=== PATIENT | female | born 1990 | race Caucasian/White ===

== ENCOUNTER 2016-10-26 21:32 | Emergency (ER) | payer OTHER ==
[~2016-10-26 21:32] MED LIST: CIPR500T4 PO; IBUP600T26 PO
--- NOTE | 2016-10-26 22:14 | PD ---
HPI Chief Complaint Contractions Date Seen: Oct 26, 2016 Time Seen: 22:00 Travel History International Travel<30 Days: No Contact w/Intl Traveler<30Days: No Known Affected Area: No History of Present Illness HPI Pt is a 26 yo here with complaint of contractions since 4am today. Contractions have increased in frequency and intensity. care at [facility]. Denies any vaginal bleeding or leaking fluid. She reports active movements Para: 0 : 1 Miscarriage: 0 : 0 History Past Medical History Narrative Medical Nil significant Medical History: Denies Significant Hx Past Surgical History Narrative Surgical Tonsillectomy Social History Alcohol Use: No Tobacco Use: No Substance Abuse: No Allergies-Medications (Allergen,Severity, Reaction): Coded Allergies: Adhesives (Verified Allergy, Unknown, 12/05/13) Home Meds Active Scripts Ciprofloxacin Hcl (Cipro)500 Mg [id number] Mg PO BID 5 Days Prov:Tamara Devi 12/06/13 Ibuprofen 600 Mg [id number] Mg PO Q8 PRN (PAIN) #30 TAB Prov:Tamara Devi 12/06/13 Review of Systems Except as stated in HPI: all other systems reviewed are Neg Physical Exam Narrative GENERAL: Well-nourished, well-developed patient. SKIN: Warm and dry. HEAD: Normocephalic and atraumatic. EYES: No scleral icterus. No injection or drainage. ENT: No nasal drainage noted. Mucous membranes pink. Airway patent. NECK: Supple, trachea midline. No JVD. CARDIOVASCULAR: Regular rate and rhythm without murmurs, gallops, or rubs. RESPIRATORY: Breath sounds equal bilaterally. No accessory muscle use. BREASTS: Bilateral exam showed no masses , no retractions, no nipple discharge. ABDOMEN/GI: Abdomen soft, non-tender, bowel sounds present, no rebound, no guarding Gravid to [-] weeks size Fundal Height: [-] GENITOURINARY: External Genitalia: intact and normal in appearance BUS glands: [-] Cervix: [soft] Dilatation: [1] Effacement: [80] Station: [-2] Presentation: [vertex] Membranes: [intact] Uterine Contractions: [3-6] FHT's: Category: [Cat 1] Baseline: [-] Reactive: [-] Variability: [-] Decels: [-] Pt was re-examined after an hour without any cervical change. She does not want anything for pain. EXTREMITIES: No cyanosis or edema. BACK: Nontender without obvious deformity. No CVA tenderness. NEUROLOGICAL: Awake and alert. Motor and sensory grossly within normal limits. Five out of 5 muscle strength in all muscle groups. Normal speech. Data Data Vital Signs Reviewed: Yes MDM Interpretation(s) No cervical change after re-exam in an hour. Diagnosis Diagnosis: Primary Impression: False labor after 37 completed weeks of gestation Additional Impression: 40 weeks gestation of Disposition: 01 DISCHARGE HOME (Prodomal labor. Labor precautions) Condition: Stable Deep Silva MD Oct 26, 2016 22:14
== END 2016-10-26 23:26 | disposition home or self-care (01) ==
LOC: HOBED 21:32
DX: O47.1 False labor at or after 37 completed weeks of gestation (principal); Z3A.40 40 weeks gestation of pregnancy
CPT/HCPCS: 87641; 99283

== ENCOUNTER 2016-10-27 06:30 | Inpatient (IN) | payer OTHER ==
[2016-10-27] VITALS (115 sets, daily range): BP systolic 72–131; BP diastolic 40–99; PULSE 59–272; RESP 16–18; TEMP 97.4–99.6; O2SAT 99–100
--- NOTE | 2016-10-27 07:35 | PD ---
HPI Chief Complaint Contractions 40 weeks and 1 day Date Seen: Oct 27, 2016 Time Seen: 07:25 Travel History International Travel<30 Days: No Contact w/Intl Traveler<30Days: No Known Affected Area: No History of Present Illness HPI Pt is a 26 yo who presents again with complaint of contractions. Increased intensity Pt was seen last night in OB ER and did not make any cervical change after 1 hour at 1cm/80/-2 She denies any vaginal leaking or bleeding Para: 0 : 1 Miscarriage: 0 : 0 History Past Medical History Medical History: Denies Significant Hx Past Surgical History Narrative Surgical Tonsillectomy Social History Alcohol Use: No Tobacco Use: No Substance Abuse: No Allergies-Medications (Allergen,Severity, Reaction): Coded Allergies: Adhesives (Verified Allergy, Unknown, 12/05/13) Home Meds Active Scripts Ciprofloxacin Hcl (Cipro)500 Mg [id number] Mg PO BID 5 Days Prov:Tamara Devi 12/06/13 Ibuprofen 600 Mg [id number] Mg PO Q8 PRN (PAIN) #30 TAB Prov:Tamara Devi 12/06/13 Review of Systems Except as stated in HPI: all other systems reviewed are Neg Physical Exam Narrative GENERAL: Well-nourished, well-developed patient. SKIN: Warm and dry. HEAD: Normocephalic and atraumatic. EYES: No scleral icterus. No injection or drainage. ENT: No nasal drainage noted. Mucous membranes pink. Airway patent. NECK: Supple, trachea midline. No JVD. CARDIOVASCULAR: Regular rate and rhythm without murmurs, gallops, or rubs. RESPIRATORY: Breath sounds equal bilaterally. No accessory muscle use. BREASTS: Bilateral exam showed no masses , no retractions, no nipple discharge. ABDOMEN/GI: Abdomen soft, non-tender, bowel sounds present, no rebound, no guarding Gravid to [40] weeks size Fundal Height: [40-] GENITOURINARY: External Genitalia: intact and normal in appearance BUS glands: [-] Cervix: [soft] Dilatation: [3] Effacement: [80 %-] Station: [-2] Presentation: [vertex] Membranes: [intact] Uterine Contractions: [3-4-] FHT's: Category: [Cat 1] Baseline: [120s Reactive: [-] Variability: [-] Decels: [-] EXTREMITIES: No cyanosis or edema. BACK: Nontender without obvious deformity. No CVA tenderness. NEUROLOGICAL: Awake and alert. Motor and sensory grossly within normal limits. Five out of 5 muscle strength in all muscle groups. Normal speech. Data Data Vital Signs Reviewed: Yes [facility] Medical Record Reviewed: Yes Interpretation(s) Cervical change with regular contractions. GBS positive. Will admit into labor Diagnosis Diagnosis: Primary Impression: 40 weeks gestation of Additional Impression: Indication for care in labor and delivery, antepartum Condition: Good Deep Silva MD Oct 27, 2016 07:35
[2016-10-27] MEDS ORDERED: LACTATED RINGER'S 1000 ML INJ 1,000 ML IV SCH (07:39)
[2016-10-27] MEDS ORDERED: LACTATED RINGER'S 1000 ML INJ 1,000 ML IV PRN (07:39)
[2016-10-27] MEDS ORDERED: CITRIC ACID-SODIUM CITRATE LIQ 30 ML UDC PO SCH (07:45)
[2016-10-27] MEDS ORDERED: LIDOCAINE HCL 1% 50 ML VIAL I-DERMAL PRN (07:45)
[2016-10-27] MEDS ORDERED: LIDOCAINE HCL 1% 50 ML VIAL INFIL PRN (07:45)
[2016-10-27] MEDS ORDERED: MINERAL OIL 10 ML VIAL TOPICAL PRN (07:45)
[2016-10-27] MEDS ORDERED: SODIUM CHLORID 0.9% 500 ML INJ 500 ML IV PRN (07:45)
--- NOTE | 2016-10-27 07:49 | HHI.HP ---
HPI Chief Complaint Contractions at term 40 weeks and 1 day gestation Date Seen: Oct 27, 2016 Time Seen: 07:44 Travel History International Travel<30 Days: No Contact w/Intl Traveler<30Days: No Known Affected Area: No History of Present Illness HPI Pt is a 26 yo who presents again with complaint of contractions. Increased intensity Pt was seen last night in OB ER and did not make any cervical change after 1 hour at 1cm/80/-2 She denies any vaginal leaking or bleeding Pt has no allergies. GBS positive Para: 0 : 1 Miscarriage: 1 History Past Medical History Medical History: Denies Significant Hx Past Surgical History Narrative Surgical Tonsillectomy Social History Alcohol Use: No Tobacco Use: No Substance Abuse: No Allergies-Medications (Allergen,Severity, Reaction): Coded Allergies: Adhesives (Verified Allergy, Unknown, 12/05/13) Home Meds Active Scripts Ciprofloxacin Hcl (Cipro)500 Mg [id number] Mg PO BID 5 Days Prov:Tamara Devi 12/06/13 Ibuprofen 600 Mg [id number] Mg PO Q8 PRN (PAIN) #30 TAB Prov:Tamara Devi 12/06/13 Review of Systems Except as stated in HPI: all other systems reviewed are Neg Physical Exam Narrative GENERAL: Well-nourished, well-developed patient. SKIN: Warm and dry. HEAD: Normocephalic and atraumatic. EYES: No scleral icterus. No injection or drainage. ENT: No nasal drainage noted. Mucous membranes pink. Airway patent. NECK: Supple, trachea midline. No JVD. CARDIOVASCULAR: Regular rate and rhythm without murmurs, gallops, or rubs. RESPIRATORY: Breath sounds equal bilaterally. No accessory muscle use. BREASTS: Bilateral exam showed no masses , no retractions, no nipple discharge. ABDOMEN/GI: Abdomen soft, non-tender, bowel sounds present, no rebound, no guarding Gravid to [-] weeks size Fundal Height: [-] GENITOURINARY: External Genitalia: intact and normal in appearance BUS glands: [-] Cervix: [soft] Dilatation: [3cm] Effacement: [80-90%] Station: [-2] Presentation: [-] Membranes: [intact] Uterine Contractions: [3-5 minutes] FHT's: Category: [Cat 1] Baseline: [-120 Reactive: [-] Variability: [-] Decels: [-] EXTREMITIES: No cyanosis or edema. BACK: Nontender without obvious deformity. No CVA tenderness. NEUROLOGICAL: Awake and alert. Motor and sensory grossly within normal limits. Five out of 5 muscle strength in all muscle groups. Normal speech. Data Data Orders Ob (2e) Additional Admit Info (10/27/16 07:32) Admit To Inpatient (10/27/16 ) Code Status (10/27/16 07:39) Vital Signs (Adult) .Per protocol (10/27/16 07:39) Activity Oob Ad Sandra (10/27/16 07:39) Heart (10/27/16 07:39) Amnioinfusion (10/27/16 07:39) Urinary Catheter Management .ONCE (10/27/16 07:39) Diet Liquid (10/27/16 Breakfast) Lactated Ringer's 1000 Ml Inj (Lr 1000 M (10/27/16 07:39) Lactated Ringer's 1000 Ml Inj (Lr 1000 M (10/27/16 07:39) Sodium Chlorid 0.9% 500 Ml Inj (Ns 500 M (10/27/16 07:45) Sodium Chlor 0.9% 1000 Ml Inj (Ns 1000 M (10/27/16 07:59) Lidocaine 1% Inj (50 Ml) (Xylocaine 1% I (10/27/16 07:45) Citric Acid-Sodium Citrate Liq (Bicitra (10/27/16 07:45) Fentanyl Inj (Fentanyl Inj) (10/27/16 07:45) Fentanyl Inj (Fentanyl Inj) (10/27/16 07:45) Penicillin G Potassium Inj (Pfizerpen-G (10/27/16 07:45) Penicillin G Potassium Inj (Pfizerpen-G (10/27/16 11:45) Complete Blood Count With Diff (10/27/16 07:39) Hold Clot (10/27/16 07:39) Abo/Rh Blood Type (10/27/16 07:39) Urinalysis - C+S If Indicated (10/27/16 07:39) Resp Oxygen Non Rebreathe Mask (10/27/16 ) ^ Epidural / Intrathecal Infus (10/27/16 07:39) Oxytocin 30 Units-500ml Premix (Pitocin (10/27/16 07:45) Lidocaine 1% Inj (50 Ml) (Xylocaine 1% I (10/27/16 07:45) Light Mineral Oil (Muri-Lube Oil) (10/27/16 07:45) Inpatient Certification (10/27/16 ) Specimen To Be Collected PRN (10/27/16 07:39) Assessment/Plan Assessment and Plan Admit in labor 40 weeks and 1 day 3cm cervical dilatation with regular contractions. GBS, for antibiotic prophylaxis. May start Pitocon if contractions space out. Deep Silva MD Oct 27, 2016 07:48
[2016-10-27] MEDS ORDERED: SODIUM CHLOR 0.9% 1000 ML INJ 1,000 ML IV PRN (07:59)
[2016-10-27] MEDS ORDERED: OXYTOCIN 30 UNITS-500ML PREMIX 500 ML IV ONE (08:00)
[2016-10-27] MEDS ORDERED: PENICILLIN G POTASSIUM INJ 5,000,000 UNITS in SODIUM CHLORIDE 0.9% INJ 100 ML IV ONE (08:00)
[2016-10-27 08:41] LABS: BACTERIA, URINE FEW /hpf; BLOOD, URINE TRACE (NEG); GLUCOSE,URINE NEG (NEG); KETONE, URINE NEG (NEG); NITRITE,URINE NEG (NEG); SQUAMOUS EPITHELIAL CELL URINE 2 /hpf (0-5); URINE COLOR LIGHT-YELLOW (YELLW/STRAW)
[2016-10-27 08:42] LABS: COMMENT (UR) CULT NOT INDICATED; CULTURE IF INDICATED CULT NOT INDICATED
[2016-10-27 08:58] LABS: AUTOMATED NEUTROPHIL # 16.6 TH/MM3 (1.8-7.7); BASOPHIL % 0.1 % (0.0-2.0); EOSINOPHIL % 0.1 % (0.0-4.0); HEMATOCRIT 39.5 % (35.0-46.0); HEMO FLAGS DIFF FINAL; LYMPH % 7.5 % (9.0-44.0); LYMPHOCYTE # 1.5 TH/MM3 (1.0-4.8); MEAN CELL VOLUME 87.1 FL (80.0-100.0); MEAN CORPUSCULAR HEMOGLOBIN 28.9 PG (27.0-34.0); MEAN CORPUSCULAR HGB CONC 33.2 % (32.0-36.0); MONO % 7.3 % (0.0-8.0); PLATELET COUNT 233 TH/MM3 (150-450); RED BLOOD COUNT 4.53 MIL/MM3 (4.00-5.30); RED CELL DISTRIBUTION WIDTH 13.7 % (11.6-17.2); WHITE BLOOD COUNT 19.6 TH/MM3 (4.0-11.0)
[2016-10-27] MEDS: PENICILLIN G POTASSIUM INJ 2,500,000 UNITS in SODIUM CHLORIDE 0.9% INJ 100 ML IV SCH ×2 (13:31→17:33)
[2016-10-27] MEDS ORDERED: OXYTOCIN 30 UNITS/NS 500ML PREMIX IV SCH (18:30)
--- NOTE | 2016-10-27 21:43 | PD.OB.DELI ---
Anesthesia: None Episiotomy: None Vaginal Delivery: Normal Presentation: Occiput anterior Nuchal Cord: None Delayed cord clamping (45 sec): Yes Infant: Female One Minute : 8 Five Minute : 9 Weight: 7 Placenta: Spontaneous delivery Laceration: Vaginal laceration, 2 deg Repair: Chromic running Estimated blood loss: Izzy Salvador MD Oct 27, 2016 21:43
[2016-10-28 00:05] VITALS: RESP 18
[2016-10-28 00:42] VITALS: BP 112/72; PULSE 85
[2016-10-28 00:50] VITALS: RESP 18
[2016-10-28] MEDS ORDERED: ALUMINUM/MAGNESIUM/SIMETH 30 ML CUP PO PRN (01:45)
[2016-10-28] MEDS ORDERED: ONDANSETRON ODT 4 MG TAB PO PRN (01:45)
[2016-10-28] MEDS ORDERED: OXYTOCIN 30 UNITS-500ML PREMIX 500 ML IV SCH (01:45)
[2016-10-28] MEDS ORDERED: ZOLPIDEM TARTRATE 5 MG TAB PO PRN (01:45)
[2016-10-28] MEDS: BENZOCAINE 20% TOPICAL SPRAY 60 ML CAN TOPICAL PRN (02:26)
[2016-10-28] MEDS: WITCH HAZEL 50%/GLYCERIN 12.5% 40 PAD JAR TOPICAL PRN (02:26)
[2016-10-28] MEDS: ACETAMINOPHEN 325 MG TAB PO PRN ×3 (02:27→18:02)
[2016-10-28] MEDS: IBUPROFEN 600 MG TAB PO PRN ×3 (02:27→18:02)
[2016-10-28] MEDS: DOCUSATE SODIUM 50 MG/SENNA 8.6 MG TAB PO PRN (02:27)
[2016-10-28 03:10] VITALS: BP 114/61; PULSE 63; RESP 18; TEMP 97.6
--- NOTE | 2016-10-28 06:17 | HHI.OB ---
Subjective Post Day: 1 Remarks Doing well, Tolerating her dieet Pain is well controlled, Baby is doing well. Objective Vitals/I&O Vital Signs Date Time Temp Pulse Resp B/P Pulse Ox O2 Delivery O2 Flow Rate FiO2 10/28/16 03:10 97.6 63 18 114/61 10/28/16 00:50 18 10/28/16 00:42 85 112/72 10/28/16 00:05 18 10/28/16 00:05 18 10/27/16 23:59 85 110/64 10/27/16 23:59 85 110/64 10/27/16 23:41 98.7 10/27/16 23:05 18 10/27/16 23:01 83 114/71 10/27/16 22:55 84 99 10/27/16 22:50 95 99 10/27/16 22:50 18 10/27/16 22:46 96 117/72 10/27/16 22:45 93 10/27/16 22:45 100 10/27/16 22:40 82 100 10/27/16 22:35 74 100 10/27/16 22:32 16 10/27/16 22:30 69 114/69 100 10/27/16 22:30 71 10/27/16 22:25 67 100 10/27/16 22:20 65 16 100 10/27/16 22:15 69 113/65 100 10/27/16 22:15 98.7 10/27/16 22:15 68 10/27/16 22:15 18 10/27/16 22:10 100 10/27/16 22:10 69 10/27/16 22:05 69 10/27/16 22:05 100 10/27/16 22:03 71 113/69 10/27/16 22:01 89 72/40 10/27/16 22:00 70 10/27/16 22:00 100 10/27/16 21:55 100 10/27/16 21:55 60 10/27/16 21:50 100 10/27/16 21:50 71 10/27/16 21:48 94 131/78 10/27/16 21:45 74 10/27/16 21:45 100 10/27/16 21:35 100 10/27/16 21:35 74 10/27/16 21:30 114 100 8/12/17 19:30 18 10/27/16 19:29 81 116/69 10/27/16 19:15 18 10/27/16 19:15 98.6 10/27/16 19:02 97 122/81 10/27/16 18:30 98.3 10/27/16 18:30 18 10/27/16 18:27 82 115/74 10/27/16 17:30 83 18 99/83 10/27/16 16:50 81 10/27/16 16:45 85 10/27/16 16:40 73 10/27/16 16:35 71 10/27/16 16:30 74 10/27/16 16:25 83 10/27/16 16:22 18 10/27/16 16:21 59 117/65 10/27/16 16:21 97.4 10/27/16 16:20 80 10/27/16 16:15 76 10/27/16 16:10 78 10/27/16 16:05 76 10/27/16 16:00 85 10/27/16 15:50 74 10/27/16 15:45 86 10/27/16 15:40 77 10/27/16 15:35 86 10/27/16 15:30 84 10/27/16 15:30 18 10/27/16 15:25 86 10/27/16 15:20 272 10/27/16 15:20 93 128/99 10/27/16 15:15 71 10/27/16 15:10 69 10/27/16 15:05 78 10/27/16 15:00 87 10/27/16 14:55 68 10/27/16 14:50 85 10/27/16 14:45 87 10/27/16 14:40 88 10/27/16 14:35 87 10/27/16 14:30 89 10/27/16 14:25 93 10/27/16 14:20 79 10/27/16 14:18 73 103/83 10/27/16 14:17 99.6 18 10/27/16 14:15 78 10/27/16 14:10 70 10/27/16 14:05 82 10/27/16 14:00 95 10/27/16 13:55 91 10/27/16 13:50 99 10/27/16 13:40 96 10/27/16 13:35 92 10/27/16 13:30 96 10/27/16 13:25 91 10/27/16 13:20 86 10/27/16 13:15 93 10/27/16 13:10 93 10/27/16 13:09 94 116/76 10/27/16 13:09 18 10/27/16 13:05 95 10/27/16 13:00 101 10/27/16 12:55 96 10/27/16 12:45 93 10/27/16 12:40 95 10/27/16 12:35 97 10/27/16 12:30 97 10/27/16 12:25 93 10/27/16 12:20 84 10/27/16 12:15 95 10/27/16 12:10 92 10/27/16 12:07 98.3 10/27/16 12:05 90 10/27/16 11:35 86 10/27/16 11:30 85 10/27/16 11:25 72 10/27/16 11:20 80 10/27/16 11:15 91 10/27/16 11:10 81 10/27/16 11:05 76 10/27/16 11:00 18 123/72 10/27/16 10:50 73 10/27/16 10:45 75 10/27/16 10:40 80 10/27/16 10:35 84 10/27/16 10:30 85 10/27/16 10:25 79 10/27/16 10:20 85 10/27/16 09:59 18 10/27/16 09:54 94 122/84 10/27/16 09:00 18 10/27/16 08:59 79 131/80 10/27/16 07:52 97.8 18 10/27/16 07:50 70 125/79 Objective Remarks GENERAL: Well-nourished, well-developed patient. CARDIOVASCULAR: Regular rate and rhythm without murmurs, gallops, or rubs. RESPIRATORY: Breath sounds equal bilaterally. No accessory muscle use. ABDOMEN/GI: Abdomen soft, non-tender. Fundus: Firm, non-tender at umbilicus. GENITOURINARY: Light to moderate bleeding. EXTREMITIES: No cyanosis or edema, non-tender, without signs of DVT. Medications and IVs Current Medications Medications (Trade) Dose Ordered Sig/Alejandro Route Start Time Stop Time Status Last Admin (Tylenol) 650 mg Q4H PRN PO 10/28/16 01:45 10/28/16 02:27 (Motrin) 600 mg Q6H PRN PO 10/28/16 01:45 10/28/16 02:27 (Americaine 20% Top Spr) 1 spray Q4H PRN TOPICAL 10/28/16 01:45 10/28/16 02:26 (Tucks Pads) 1 applic Q6H PRN TOPICAL 10/28/16 01:45 10/28/16 02:26 (Ellen-Colace) 2 tab Q12H PRN PO 10/28/16 01:45 10/28/16 02:27 (Ambien) 5 mg HS PRN PO 10/28/16 01:45 (M-M-R Ii Inj) 0.5 ml ONCE ONCE SQ 10/28/16 16:00 10/28/16 16:01 (Boostrix Inj) 0.5 ml ONCE ONCE IM 10/28/16 16:00 10/28/16 16:01 (Mag-Al Plus Susp Liq) 15 ml Q8H PRN PO 10/28/16 01:45 Ondansetron HCl 4 mg 4 mg Q6H PRN PO 10/28/16 01:45 (Pitocin 30 Units-NS 500 ml Premix) 500 ml @ 100 mls/hr Q5H IV 10/28/16 01:45 10/28/16 06:44 Assessment/Plan Assessment and Plan PPD#1 Routine care GBS positive. Juan Ponce MD Oct 28, 2016 06:17
[2016-10-28 08:21] VITALS: BP 109/61; PULSE 70; RESP 16; TEMP 98
[2016-10-28] MEDS ORDERED: IBUP-232 PO (13:23)
--- NOTE | 2016-10-28 13:23 | HHI.DCPOC ---
Discharge Care Plan Diagnosis: (1) Vaginal delivery Report Symptoms to Your Doctor -Temperature above 100.5 degrees -Redness, of incision or excessive or foul smelling drainage -Unusual pain or calf pain -Increased vaginal bleeding -Painful or difficulty urinating -Feelings of extreme sadness or anxiety after 2 weeks Goals to Promote Your Health * To prevent worsening of your condition and complications * To maintain your health at the optimal level Directions to Meet Your Goals Take your medications as prescribed Follow your dietary instruction Follow activity as directed Ensure plenty of rest for recovery Drink fluids for hydration Keep your appointments as scheduled Take your immunizations and boosters as scheduled If your symptoms worsen call your PCP, if no PCP go to Urgent Care Center or Emergency Room Smoking is Dangerous to Your Health. Avoid second hand smoke Call the 24-hour crisis hotline for domestic abuse at Juan Ponce MD Oct 28, 2016 13:23
[2016-10-28] MEDS ORDERED: DIPHTH/TETANUS/ACEL PERTUSSIS (BOOSTER) 0.5 ML VIAL/PFS IM ONE (16:00)
[2016-10-28] MEDS ORDERED: MEASLES, MUMPS, RUBELLA VACCINE 0.5 ML VIAL SQ ONE (16:00)
[2016-10-28 20:30] VITALS: BP 122/80; PULSE 83; RESP 18; TEMP 98.6
[2016-10-29] MEDS: IBUPROFEN 600 MG TAB PO PRN ×3 (00:53→13:43)
[2016-10-29] MEDS: DOCUSATE SODIUM 50 MG/SENNA 8.6 MG TAB PO PRN ×2 (00:53→13:43)
[2016-10-29] MEDS: ACETAMINOPHEN 325 MG TAB PO PRN ×3 (00:53→13:44)
[2016-10-29 07:47] VITALS: BP 108/64; PULSE 56; RESP 20; TEMP 97.9
--- NOTE | 2016-10-29 07:55 | HHI.OB ---
Subjective Post Day: 2 Remarks doing well with nursing ready for discharge no complaints Objective Vitals/I&O Vital Signs Date Time Temp Pulse Resp B/P Pulse Ox O2 Delivery O2 Flow Rate FiO2 10/29/16 07:47 97.9 56 20 108/64 10/28/16 20:30 98.6 83 18 122/80 10/28/16 08:21 98.0 70 16 109/61 Objective Remarks GENERAL: Well-nourished, well-developed patient. CARDIOVASCULAR: Regular rate and rhythm without murmurs, gallops, or rubs. RESPIRATORY: Breath sounds equal bilaterally. No accessory muscle use. ABDOMEN/GI: Abdomen soft, non-tender. Fundus: Firm, non-tender at umbilicus. GENITOURINARY: Light to moderate bleeding. EXTREMITIES: No cyanosis or edema, non-tender, without signs of DVT. Medications and IVs Current Medications Medications (Trade) Dose Ordered Sig/Alejandro Route Start Time Stop Time Status Last Admin (Tylenol) 650 mg Q4H PRN PO 10/28/16 01:45 10/29/16 07:34 (Motrin) 600 mg Q6H PRN PO 10/28/16 01:45 10/29/16 07:34 (Americaine 20% Top Spr) 1 spray Q4H PRN TOPICAL 10/28/16 01:45 10/28/16 02:26 (Tucks Pads) 1 applic Q6H PRN TOPICAL 10/28/16 01:45 10/28/16 02:26 (Ellen-Colace) 2 tab Q12H PRN PO 10/28/16 01:45 10/29/16 00:53 (Ambien) 5 mg HS PRN PO 10/28/16 01:45 (Mag-Al Plus Susp Liq) 15 ml Q8H PRN PO 10/28/16 01:45 (Zofran Odt) 4 mg Q6H PRN PO 10/28/16 01:45 Assessment/Plan Assessment and Plan PPD#2 Routine prison today Izzy Dodson MD Oct 29, 2016 07:55
--- NOTE | 2016-10-29 07:56 | HHI.DCPOC ---
Discharge Care Plan Report Symptoms to Your Doctor -Temperature above 100.5 degrees -Redness, of incision or excessive or foul smelling drainage -Unusual pain or calf pain -Increased vaginal bleeding -Painful or difficulty urinating -Feelings of extreme sadness or anxiety after 2 weeks Goals to Promote Your Health * To prevent worsening of your condition and complications * To maintain your health at the optimal level Directions to Meet Your Goals Take your medications as prescribed Follow your dietary instruction Follow activity as directed Ensure plenty of rest for recovery Drink fluids for hydration Keep your appointments as scheduled Take your immunizations and boosters as scheduled If your symptoms worsen call your PCP, if no PCP go to Urgent Care Center or Emergency Room Smoking is Dangerous to Your Health. Avoid second hand smoke Call the 24-hour crisis hotline for domestic abuse at Izzy Dodson MD Oct 29, 2016 07:56
[2016-10-29] MEDS: BENZOCAINE 20% TOPICAL SPRAY 60 ML CAN TOPICAL PRN (09:09)
[2016-10-29] MEDS: WITCH HAZEL 50%/GLYCERIN 12.5% 40 PAD JAR TOPICAL PRN (09:09)
--- NOTE | 2016-10-29 10:08 | EKG ---
Date Performed: 10/27/2016 Time Performed: 20:06:04 PTAGE: 26 years EKG: Sinus rhythm WITH SINUS ARRHYTHMIA POOR R WAVE PROGRESSION, POSSIBLE NORMAL FOR AGE ABNORMAL ECG NO PREVIOUS TRACING FOR COMPARISON DOCTOR: Kerwin Machado Interpretating Date/Time 10/29/2016 10:07:13
== END 2016-10-29 17:50 | disposition home or self-care (01) | DRG 775 ==
LOC: HOBED 06:30 → H2EB 07:37 → H1EA 10-28 00:55
PROVIDERS: ADMIT Obstetrics & Gynecology; ATTEND Obstetrics & Gynecology
PROC: 0KQM0ZZ Repair Perineum Muscle, Open Approach (ICD-10-PCS; principal; 2016-10-27)
PROC: 10E0XZZ Delivery of Products of Conception, External Approach (ICD-10-PCS; 2016-10-27)
DX: O71.4 Obstetric high vaginal laceration alone (principal); Z37.0 Single live birth; O99.824 Streptococcus B carrier state complicating childbirth; Z3A.40 40 weeks gestation of pregnancy
CPT/HCPCS: 81001; 85025; 85461; 86850; 86900; 86901; 87641; 90384; 90715; 93005; J2540; J2590; J2790; J7120